=== PATIENT | male | born 1950 | race Caucasian/White ===

== ENCOUNTER → 2016-10-19 | Outpatient (CLI) | payer OTHER ==
--- NOTE | ~2016-10-19 | CT55 ---
[facility] A Service of [facility] RADIOLOGY TEXT RESULTS PATIENT: OLLIE KOWALSKI LOCATION: [facility] : 46 UNIT #: [id number] AGE: [address]: Chelsea Mclaughlin MD SEX: M ORDER DR: [id number] [facility] [address] [place], [place] [address] [id number] O MR#: [id number] Acc #: [id number] NAME: OLLIE KOWALSKI : 1950 SEX: M STUDY DATE/TIME: 10/19/2016 8:44 UNIT: [facility] ROOM: STUDY DESCRIPTION: CT Chest W Con Attending Physician: Chelsea Mclaughiln M.D. Ordering Physician: Chelsea Mclaughlin M.D. Primary Care Physician: Chelsea Mclaughlin M.D. MEDICAL IMAGING REPORT This report is preliminary unless electronic signature is present EXAM Chest CT with contrast, 10/19/2016 INDICATIONS 66-year-old male with dyspnea. Persistent cough for 6 months. Hypertension. No history of malignancy. TECHNIQUE Contrast enhanced CT chest was performed. This CT exam was performed with one or more of the following radiation dose reduction techniques: automatic exposure control, adjustment of mA and/or kV according to patient size, and iterative reconstruction. COMPARISON There are no comparisons. FINDINGS CT CHEST: The lungs are clear. There is some atelectasis in the lung bases. No pericardial effusion or pleural effusion. Included thyroid unremarkable. There is no axillary adenopathy. Minimal gynecomastia. Aorta demonstrates no aneurysm or dissection. Small reactive-appearing mediastinal nodes are present. There is a moderately large to large hiatal hernia present. This may account for the patient's persistent cough-like symptoms. Included upper abdomen demonstrates fatty infiltration of the liver and is otherwise negative. Kidneys mildly atrophic. Osseous structures demonstrate no suspicious bone lesion. There are mild degenerative changes. There is a left sided power pack device in the subcutaneous fat of the left hemithorax. [facility] A Service of [facility] RADIOLOGY TEXT RESULTS PATIENT: OLLIE KOWALSKI LOCATION: [facility] : 46 UNIT #: [id number] AGE: [address]: Chelsea Mclaughlin MD SEX: M ORDER DR: IMPRESSION 1. Moderately large to large hiatal hernia. This may account for the patient's persistent cough symptoms. 2. Lungs are clear. No effusion. Minimal atelectasis in the lung bases. 3. Included upper abdomen demonstrates fatty infiltration of the liver. Dictated by... Mario Jones M.D. THIS IS AN ELECTRONICALLY VERIFIED REPORT Mario Jones M.D. at 10/20/2016 8:11 AM Primitivo TD: 10/19/2016 10:29 JOB #: [id number] MEDICAL IMAGING REPORT COPY
[2016-10-19 09:26] LABS: POC - CREATININE 1.16 mg/dL (0.64-1.27); POC - GFR >60.0 mL/min (>60)
== END | disposition home or self-care (01) ==
LOC: CCAT 08:05
PROVIDERS: Family Medicine
DX: R06.00 Dyspnea, unspecified (principal); R05 Cough; J98.11 Atelectasis; K76.0 Fatty (change of) liver, not elsewhere classified; I10 Essential (primary) hypertension
CPT/HCPCS: 71260; 82565; Q9967